=== PATIENT | male | born 1990 | race Caucasian/White ===

== ENCOUNTER 2016-12-13 04:21 | Emergency (ER) | payer SELFPAY ==
--- NOTE | ~2016-12-13 | CT4 ---
[facility] A Service of [facility] & [facility] RADIOLOGY TEXT RESULTS PATIENT: OG HERNANDEZ LOCATION: [facility] : [birth year] UNIT #: [id number] AGE: [address]: Meka Wall APRN SEX: M ORDER DR: [id number] [facility] [address] [place], [place] [address] [id number] MR#: [id number] Acc #: [id number] NAME: OG HERNANDEZ : 1990 SEX: M STUDY DATE/TIME: 12/13/2016 3:43 UNIT: [facility] ROOM: STUDY DESCRIPTION: CT Abd and Pelv Wo Cont Attending Physician: Meka Wall A.P.R.N. Ordering Physician: Meka Wall A.P.R.N. Primary Care Physician: Primary Care Physician No MEDICAL IMAGING REPORT This report is preliminary unless electronic signature is present EXAM CT abdomen and pelvis without contrast INDICATIONS Left flank pain for 4 hours. History of kidney stones. COMPARISON 09/02/2015. TECHNIQUE Axial 3 mm images were obtained through the abdomen and pelvis without IV or oral contrast. This CT exam was performed with one or more of the following radiation dose reduction techniques: automatic exposure control, adjustment of mA and/or kV according to patient size, and iterative reconstruction. FINDINGS Lung bases are clear. The liver, gallbladder, spleen, pancreas, and adrenal glands are normal. There are tiny calcifications in the right kidney suggesting 5 or 6 nonobstructing stones. There are 3 or 4 in the left kidney. There is also mild left hydronephrosis. There are 2 calcifications that may be in the distal ureter, 1 is 2 mm and other is 1 mm. The smaller one is lodged at the ureterovesical juncture. Both are new from the old study. The stomach is distended with fluid. The bowel is normal. The bladder and prostate gland are normal. IMPRESSION Mild left hydronephrosis with what appears to be two small distal ureteral stones measuring 1 and 2 mm in size. There are also tiny nonobstructing stone in each kidney. Dictated by... [facility] A Service of [facility] & [facility] RADIOLOGY TEXT RESULTS PATIENT: OG HERNANDEZ LOCATION: [facility] : 88 UNIT #: [id number] AGE: [address]: Meka Wall APRN SEX: M ORDER DR: Meliton Chaudhry M.D. THIS IS AN ELECTRONICALLY VERIFIED REPORT Meliton Chaudhry M.D. at 12/13/2016 1:13 PM Mary TD: 12/13/2016 06:14 JOB #: [id number] MEDICAL IMAGING REPORT Page 1 of 1 COPY
[2016-12-13 03:27] LABS: URINE SOURCE CLEAN CATCH
[2016-12-13 03:30] LABS: BASOPHIL# 0.1 X10e3 (0-0.3); BASOPHIL% 1.1 % (0-2.5); EOSINOPHIL# 0.1 X10e3 (0-0.7); EOSINOPHIL% 1.3 % (0.0-7.0); HEMATOCRIT 37.3 % (38.0-50.0); HEMOGLOBIN 12.4 gm/dL (13.0-16.0); LYMPHOCYTE# 1.6 X10e3 (1.0-3.5); LYMPHOCYTE% 20.8 % (17.0-45.0); MEAN CELL VOLUME 84.4 FL (83-96); MEAN CORPUSCULAR HGB CONC 33.1 g/dL (30-36); MONOCYTE# 0.8 X10e3 (0-1.0); MONOCYTE% 10.6 % (3.0-12.0); NEUTROPHIL# 5.1 X10e3 (1.5-7.1); NEUTROPHIL% 66.2 % (40-75); PLATELET COUNT 250 X10e3 (140-420); RED BLOOD COUNT 4.42 X10e (3.90-5.60); RED CELL DISTRIBUTION WIDTH 13.4 % (11.0-15.5); WHITE BLOOD COUNT 7.7 X10e3 (4.0-10.5)
[2016-12-13 03:31] LABS: DIFF IND NO
[2016-12-13 03:37] LABS: URINE APPEARANCE CLOUDY; URINE BLOOD 3+ (NEG); URINE COLOR DK YELLOW; URINE GLUCOSE NEG (NEG); URINE KETONE 1+ (NEG); URINE LEUKOCYTE ESTERASE 1+ (NEG); URINE NITRATE NEG (NEG); URINE PH 5.5 (5-8); URINE PROTEIN 3+ (NEG); URINE SPECIFIC GRAVITY 1.034 (1.003-1.035)
[2016-12-13 03:45] LABS: URBCS1 AUWI 25-50 /[HPF] (0-2); URINE BILIRUBIN POS (NEG)
[2016-12-13 03:46] LABS: CULTURE INDICATED? YES
[2016-12-13 03:53] LABS: ALBUMIN SERUM 3.7 g/dL (3.5-5.0); BILIRUBIN, DIRECT 0.1 mg/dL (0.0-0.2); BILIRUBIN,INDIRECT 0.4 mg/dL (0.0-0.9); BILIRUBIN,TOTAL 0.5 mg/dL (0.2-2.0); CALCIUM SERUM 9.2 mg/dL (8.4-10.2); GLOM FILT RATE Estimated 102.7 mL/min (>60); POTASSIUM 4.1 mmol/L (3.5-5.1); PROTEIN TOTAL SERUM 7.7 g/dL (6.0-8.3)
[~2016-12-13 04:21] MED LIST: LORTAB 10-3251 EACH; NO MEDICATIONS; PHENERGAN25 MG PO; VIBRAMYCIN100 M1 PO
[2017-01-18] MEDS ORDERED: KEFLEX500 MG PO (19:19)
== END 2016-12-13 05:33 | disposition home or self-care (01) ==
LOC: CED 04:21
PROVIDERS: Nurse Practitioner
DX: N13.2 Hydronephrosis with renal and ureteral calculous obstruction (principal); F17.210 Nicotine dependence, cigarettes, uncomplicated; Z87.442 Personal history of urinary calculi
CPT/HCPCS: 36415; 74176; 80048; 80076; 81003; 83690; 85025; 87086; 96361; 96374; 96375; 99284; J1885; J2405

== ENCOUNTER 2017-01-16 23:09 | Emergency (ER) | payer SELFPAY ==
[2017-01-16] MEDS ORDERED: PRILOSEC (23:19)
[2017-01-18] MEDS ORDERED: KEFLEX500 MG PO (19:19)
== END 2017-01-17 00:55 | disposition home or self-care (01) ==
LOC: SED 23:09
DX: L02.413 Cutaneous abscess of right upper limb (principal); F17.200 Nicotine dependence, unspecified, uncomplicated
CPT/HCPCS: 10060; 87070; 87077; 87205; 99283